=== PATIENT | female | born 1985 | race American Indian/Alaskan Native ===

== ENCOUNTER 2021-09-01 10:53 | Emergency (ER) | payer MEDICAID ==
[2021-09-01] MEDS ORDERED: CYCLOBENZAPRINE 10 MG TAB PO ONE (11:34)
[2021-09-01] MEDS ORDERED: IBUPROFEN 800 MG TAB PO ONE (11:34)
--- NOTE | 2021-09-01 11:41 | Emergency Department Report ---
ED Back Pain/Injury HPI - General Chief Complaint: Back Pain/Injury Stated Complaint: LOWER BACK PAIN Time Seen by Provider: 09/01/21 11:34 Source: patient Limitations: No Limitations - History of Present Illness Initial Comments: 36 yo AA comes to ER with low back pain radiating to LLE. It is worse with movement. It started after she started a new job and was lifting heavy items. No bladder or bowel incontinence Pain not waking her from sleep No fall or trauma No saddle parasthesia Pos straight leg raise on exam Ambulatory with no difficulty in triage MD Complaint: back pain -: Sudden, days(s) Similar Symptoms Previously: Yes Place: work Radiation: none Severity: mild Severity scale (0 -10): 3 Quality: aching Consistency: intermittent Improves With: immobilization Worsens With: movement Associated Symptoms: denies other symptoms - Related Data Previous Rx's Medication Instructions Recorded Last Taken Type Cyclobenzaprine [Flexeril] 10 mg PO TID PRN #10 tablet 09/01/21 Unknown Rx Ibuprofen [Motrin] 800 mg PO Q8HR PRN #30 tablet 09/01/21 Unknown Rx predniSONE [Deltasone] 20 mg PO DAILY #5 tablet 09/01/21 Unknown Rx Allergies Allergy/AdvReac Type Severity Reaction Status Date / Time No Known Allergies Allergy Unverified 01/23/14 15:00 ED Review of Systems ROS: Stated complaint: LOWER BACK PAIN Other details as noted in HPI Comment: All other systems reviewed and negative ED Past Medical Hx - Past Medical History Previous Medical History?: No - Surgical History Past Surgical History?: No - Family History Family history: no significant - Social History Smoking Status: Never Smoker Substance Use Type: None - Medications Home Medications: Home Medications Medication Instructions Recorded Confirmed Last Taken Type Cyclobenzaprine [Flexeril] 10 mg PO TID PRN #10 tablet 09/01/21 Unknown Rx Ibuprofen [Motrin] 800 mg PO Q8HR PRN #30 tablet 09/01/21 Unknown Rx predniSONE [Deltasone] 20 mg PO DAILY #5 tablet 09/01/21 Unknown Rx ED Physical Exam - General Limitations: No Limitations General appearance: alert, in no apparent distress - Head Head exam: Present: atraumatic, normocephalic - Eye Eye exam: Present: normal appearance - ENT ENT exam: Present: mucous membranes moist - Neck Neck exam: Present: normal inspection - Respiratory Respiratory exam: Present: normal lung sounds bilaterally. Absent: respiratory distress - Cardiovascular Cardiovascular Exam: Present: regular rate, normal rhythm. Absent: systolic murmur, diastolic murmur, rubs, gallop - GI/Abdominal GI/Abdominal exam: Present: soft, normal bowel sounds - Extremities Exam Extremities exam: Present: normal inspection - Back Exam Back exam: Present: normal inspection - Neurological Exam Neurological exam: Present: alert, oriented X3 - Psychiatric Psychiatric exam: Present: normal affect, normal mood - Skin Skin exam: Present: warm, dry, intact, normal color. Absent: rash ED Course Vital Signs 09/01/21 09/01/21 11:25 11:45 Temperature 98.9 F Pulse Rate 103 H Respiratory 16 16 Rate Blood Pressure 127/76 [Left] O2 Sat by Pulse 99 Oximetry ED Medical Decision Making - Medical Decision Making Vital Signs 09/01/21 09/01/21 11:25 11:45 Temperature 98.9 F Pulse Rate 103 H Respiratory 16 16 Rate Blood Pressure 127/76 [Left] O2 Sat by Pulse 99 Oximetry hr 90 per provider exam no dysuria no fever or chills no n/v/d no abd pain no cva tenderness no saddle parasthesia or cauda equina concerns no trauma pain worse with movement pos left straight leg raise medicated in er for pain dc home with dc plan of care including pcp follow up. Pt verbalizes understanding of plan of care including meds and follow up with work comp since this occurred while at work. On dc pt ambulatory and in nad - Differential Diagnosis musculoskeletal; urinary related Critical care attestation.: If time is entered above; I have spent that time in minutes in the direct care of this critically ill patient, excluding procedure time. ED Disposition Clinical Impression: Musculoskeletal pain, Back pain, Sciatica Disposition: HOME / SELF CARE / HOMELESS Is pt being admited?: No Does the pt Need Aspirin: No Condition: Stable Instructions: Radicular Pain Additional Instructions: meds as ordered warm compresses follow up with pcp or ortho MD referrals below you should see them jodie since you are missing work Prescriptions: predniSONE [Deltasone] 20 mg PO DAILY #5 tablet Cyclobenzaprine [Flexeril] 10 mg PO TID PRN #10 tablet PRN Reason: Muscle Spasm Ibuprofen [Motrin] 800 mg PO Q8HR PRN #30 tablet PRN Reason: Pain, Moderate (4-6) Referrals: SHAVON LEZAMA MD [Staff Physician] - 3-5 Days BERNY BOYKIN MD [Staff Physician] - 3-5 Days Forms: Work/School Release Form(ED) Time of Disposition: 11:39
[2021-09-01 11:50] VITALS: BP 121/70
[2021-09-01] MEDS ORDERED: predniSONE 20 MG TAB PO NR (12:00)
== END 2021-09-01 12:00 | disposition home or self-care (01) ==
LOC: ED 10:53
DX: M79.10 Myalgia, unspecified site (principal); M54.50 Low back pain, unspecified; M54.30 Sciatica, unspecified side
CPT/HCPCS: 99282; J7512

== ENCOUNTER 2021-11-11 17:22 | Emergency (ER) | payer MEDICAID | END 2021-11-11 17:23 | disposition left against medical advice (07) | LOC: ED 17:22 | DX: H92.09 Otalgia, unspecified ear (principal); Z53.21 Procedure and treatment not carried out due to patient leaving prior to being seen by health care provider ==